=== PATIENT | female | born 1945 | race African-American/Black ===

== ENCOUNTER 2024-11-23 16:51 | Emergency (ER) | payer MEDICARE ==
[~2024-11-23] VITALS: Ht 165.1 cm; Wt 89.4 kg
[2024-11-23 17:58] LABS: PLATELET COUNT (AUTO) 232 K/uL (150-450); RED BLOOD CELL COUNT(AUTO) 4.35 MIL/uL (4.0-5.2); RED CELL DISTRIBUTION WIDTH 14.6 % (11.5-15.0); WHITE BLOOD COUNT (AUTO) 5.2 K/uL (4.3-11.0)
[2024-11-23] MEDS ORDERED: ACETAMINOPHEN ES 500 MG TABLET ONE (18:03)
[2024-11-23] MEDS: ACETAMINOPHEN 325 MG TABLET PO ONE (18:05)
[2024-11-23 18:16] LABS: CALCIUM, SERUM 9.0 mg/dL (8.5-10.1); CREATININE 0.6 mg/dL (0.6-1.3); SODIUM SERUM 142 mmol/L (136-145); UREA NITROGEN, BLOOD 9 mg/dL (7-18)
[2024-11-23 18:31] LABS: ASPARTATE AMINOTRANSFERASE 20 U/L (15-37); TOTAL PROTEIN, SERUM 7.6 g/dL (6.4-8.2)
[2024-11-23 18:49] LABS: APPEARANCE,URINE CLEAR (CLEAR); BLOOD, URINE NEGATIVE Ery/uL (NEGATIVE); LEUKOCYTE ESTERASE ,URINE NEGATIVE (NEGATIVE); NITRITE, URINE NEGATIVE (NEGATIVE); UGLUCOSE NEGATIVE (NEGATIVE)
[2024-11-23] MEDS ORDERED: LIDOCAINE 5% (PATCH) 1 EA PATCH TP ONE (20:37)
[2024-11-23] MEDS: LIDOCAINE 5% (PATCH) 1 EA PATCH TP ONE (20:53)
[2024-11-23 21:17] VITALS: BP 179/69; TEMP 97.5; O2SAT 98
== END 2024-11-23 21:18 | disposition home or self-care (01) ==
LOC: ER 16:54
DX: G89.29 Other chronic pain (principal); M25.561 Pain in right knee; M25.562 Pain in left knee; R07.89 Other chest pain; R10.2 Pelvic and perineal pain; E11.9 Type 2 diabetes mellitus without complications; F03.90 Unspecified dementia, unspecified severity, without behavioral disturbance, psychotic disturbance, mood disturbance, and anxiety; I10 Essential (primary) hypertension; G43.909 Migraine, unspecified, not intractable, without status migrainosus
CPT/HCPCS: 36415; 70450-TC; 71045-TC; 71100-TC; 72125-TC; 72170-TC; 73564-TC; 80048-TC; 80076-TC; 84484-TC; 85025-TC; 87086-TC